=== PATIENT | male | born 1960 | race Caucasian/White ===

== ENCOUNTER 2016-11-14 19:23 | Emergency (ER) | payer SELFPAY ==
[~2016-11-14] VITALS: Ht 177.8 cm; Wt 104.3 kg
--- NOTE | 2016-11-14 19:27 | NUR ---
PT DANE FROM THE STREET TO ER BED 11. C/O OF DIFUSE ABDOMINAL PAIN. NO N/V. ADMITS TO BEEN DRINKING. STABLE VITALS NAD NOTED. AWAITING MD SORIANO.
--- NOTE | 2016-11-14 21:18 | NUR ---
PT STATES FEELING MUCH BETTER. WANTS TO GO HOME. ASKING TO HAVE A TAXI CALLED FOR HIM. DR CHING AWARE. PT IS AAOX3 AMBULATORY W/ STEADY GAIT. D/C IN STABLE CONDITION.
[2016-11-14 21:20] VITALS: BP 136/87
== END 2016-11-14 21:29 | disposition home or self-care (01) ==
LOC: ER 19:25
DX: F10.129 Alcohol abuse with intoxication, unspecified (principal); I10 Essential (primary) hypertension
CPT/HCPCS: 99283; A4606; Z7610